=== PATIENT | female | born 1965 | race Caucasian/White ===

== ENCOUNTER 2021-01-06 10:39 | Inpatient (IN) | payer OTHER, SELFPAY ==
--- NOTE | ~2021-01-06 | XR_ITS ---
EXAMINATION: XR chest 1V portable DATE: 01/06/2021 11:14 INDICATION: Weakness. Low oxygen saturation. TECHNIQUE: A single frontal view of the chest was obtained. COMPARISON: None. FINDINGS: There are patchy airspace opacities in the mid and lower lung zones with a peripheral predo minance. No pleural effusion or pneumothorax. The heart size is normal. IMPRESSION: 1. Patchy airspace opacities in the mid and lower lung zones, consistent with pneumonia (especially C OVID-19 pneumonia). Reviewed, dictated and finalized at location B. IMPRESSION: 1. Patchy airspace opacities in the mid and lower lung zones, consistent with p neumonia (especially COVID-19 pneumonia).
--- NOTE | ~2021-01-06 | XR_ITS ---
XR chest 1V portable DATE: 01/10/2021 12:02 INDICATION: Hypoxia TECHNIQUE: Portable upright AP chest on 01/10/2021 at 1201 hours COMPARISON: 01/06/2021 portable AP chest at 1109 hours FINDINGS: Persistent patchy infiltrates are noted in the mid and lower lung zones, relatively stable in appearance compared to 01/06/2021. Normal heart size. No pleural effusion or pulmonary vascular congestion or pneumothorax. Mild dextroscoliosis and degenerative spurring of the thoracic spine. IMPRESSION: Stable patchy bilateral mid and lower lung zone infiltrates since 01/06/2021 Reviewed, dictated and finalized at location A.
[2021-01-06 10:42] VITALS: BP 125/62; PULSE 87; RESP 20; TEMP 36.7; O2SAT 88
--- NOTE | 2021-01-06 10:57 | ECG_ITS ---
Measurements Intervals [place] Rate: 76 P: 53 [place]: 167 QRS: 34 QRSD: 85 T: 40 QT: 358 QTc: 404 Interpretive Statements SINUS RHYTHM NORMAL ECG Electronically Signed On 01-06-2021 12:14:56 CDT by Luis Grey D.O.
[2021-01-06 11:13] LABS: Basophils Percent Auto 0.2 % (0.2-1.2); Hemoglobin 13.9 g/dL (12.0-15.0); Immature Granulocyte Absolute 0.05 K/mm3 (0.00-0.031); Immature Granulocyte Percent A 0.8 % (0-0.5); Lymphocytes Absolute Auto 1.04 K/mm3 (0.9-3.2); Lymphocytes Percent Auto 16.2 % (18.3-44.2); Mean Corpuscular HGB Conc 34.8 g/dl (32-36); Mean Corpuscular Hemoglobin 30.6 pg (26-34); Mean Corpuscular Volume 88.1 fl (80-100); Mean Platelet Volume 9.8 fl (7.4-10.4); Monocytes Absolute Auto 0.3 K/mm3 (0.1-0.6); Monocytes Percent Auto 5.1 % (2.6-8.5); Neutrophils Percent Auto 77.7 % (45.5-73.1); Platelet Count Result 176 k/mm3 (150-375); Red Blood Count 4.54 M/mm3 (4.2-5.4); Red Cell Distribution Width 11.5 % (11.5-14.5); White Blood Count 6.4 K/mm3 (4.5-10.0)
--- NOTE | 2021-01-06 11:18 | PC.NURSE ---
Briana from lab called - both green tops hemolyzed. Informed Dr Gomez & lab draw
--- NOTE | 2021-01-06 11:22 | ED.GENADULT ---
HPI - General Adult General Chief complaint: Weakness Stated complaint: dehydration, weakness, fever Time Seen by Provider: 01/06/21 11:12 Source: patient History of Present Illness HPI narrative: Patient is 55 y/o female complaining of fever, cough and weakness for 1-2 weeks. She states that she had she had her first dose of COVID vaccine approximately 10 days ago and her symptoms started shortly after. She states that her temperature went up to 104 and her fever is usually relieved by OTC Tylenol. She has no chest pain or abdominal pain. She does not feel SOB despite low pulse ox recorded in ED. Related Data Home Medications Medication Instructions Recorded Confirmed No Home Medications 01/06/21 01/06/21 Allergies Allergy/AdvReac Type Severity Reaction Status Date / Time No Known Allergies Allergy Verified 01/06/21 15:18 Review of Systems Constitutional: Constitutional: Reports chills, Reports fever(s), Denies headache(s) and Reports weakness Eyes: Eyes: Denies blurry vision ENT: Denies headache(s) and Denies neck pain Cardiovascular: Cardiovascular: Denies chest pain and Denies dyspnea Respiratory: Respiratory: Reports cough and Denies dyspnea Gastrointestinal: Gastrointestinal: Denies abdominal pain, Denies diarrhea, Denies nausea and Denies vomiting Genitourinary: Genitourinary: Denies hematuria and Denies dysuria Musculoskeletal: Musculoskeletal: Denies back pain and Denies neck pain Neurologic: Denies headache(s) and Reports weakness [facility] Family History Family History (Updated 01/06/21 @ 15:10 by Milagros Butt RN) Father Lymphoblastic (diffuse) lymphoma, unspecified site Mother Diabetes mellitus Social History Social History Smoking status: Never smoker Alcohol intake: never Substance use: never Gender identity (if verbalized by the patient): Female Spiritual care concerns: No Exam Const: General: no acute distress and well developed Orientation/consciousness: oriented to person, oriented to place, oriented to time and patient oriented x3 HENMT: Head: normocephalic Ears: external ears normal General nose exam: Normal external nose present Eyes: General: appearance normal, both eyes and all related structures Conjunctivae: conjunctivae normal Neck: Neck: normal visual inspection and full ROM Chest: Chest palpation & inspection: normal inspection of the chest and no tenderness Resp: Effort & Inspection: normal respiratory effort Auscultation: clear to auscultation bilaterally Cardio: Rate: regular rate Rhythm: regular rhythm GI: GI Palp: No abdominal tenderness and Yes Soft to palpation Skin: General skin exam: normal color and turgor normal Neuro: General: oriented to person, oriented to place, oriented to time and patient oriented x3 Cognition (Neuro): normal cognition Extrem: General: normal to inspection, full ROM and no pedal edema Psych: Appearance: grossly normal Mental Status: mental status grossly normal Affect: normal affect Course Consultations Consultation #1: Discussed with Dr. Greco, who agrees to admit. Date: 01/06/21 Time: 12:37 Vital Signs Vital signs: Vital Signs Temperature 36.7 C 01/06/21 10:42 Pulse Rate 87 01/06/21 10:42 Respiratory Rate 20 01/06/21 10:42 Blood Pressure 125/62 01/06/21 10:42 Pulse Oximetry 88 L 01/06/21 10:42 Temperature 36.7 C 01/06/21 16:00 Pulse Rate 74 01/06/21 16:00 Respiratory Rate 18 01/06/21 16:00 Blood Pressure 121/58 L 01/06/21 16:00 Pulse Oximetry 94 01/06/21 16:00 Medical Decision Making Vital Signs Vital Signs: Vital Signs Temperature 36.7 C 01/06/21 10:42 Pulse Rate 87 01/06/21 10:42 Respiratory Rate 20 01/06/21 10:42 Blood Pressure 125/62 01/06/21 10:42 Pulse Oximetry 88 L 01/06/21 10:42 Temperature 36.7 C 01/06/21 16:00 Pulse Rate 74 01/06/21 16:00 Respiratory Rate 18 01/06/21 16:00 Blood Pressure 121/58 L
--- NOTE | 2021-01-06 11:31 | PC.NURSE ---
c/o x1.5wks flu-like symptoms, denies covid contacts. Today felt weak, congested cough, fever/chills . Hypoxic on RA (mid-80's) and DE LEON, quick improvement with 2L NC.
[2021-01-06] MEDS: SODIUM CHLORIDE 0.9% IV 1,000 ML 999 ML IV CONT (11:33)
[2021-01-06 11:46] LABS: Lactic Acid Reflex 1.3 mmol/L (0.7-2.1)
[2021-01-06 11:59] LABS: Alanine Aminotransferase 23 U/L (4-35); Alkaline Phosphatase 80 U/L (38-126); Anion Gap 5 mmol/L (8-16); Aspartate Amino Transferase 68 U/L (14-36); Bilirubin,Total 0.5 mg/dL (0.2-1.3); Blood Urea Nitrogen 19 mg/dL (7-17); Calcium 8.7 mg/dL (8.4-10.2); Carbon Dioxide 29 mmol/L (22-30); Chloride 100 mmol/L (98-107); Estimated CRCL calculation 66 ml/min; Estimated Glomerular Filt Rate 58; Glucose 120 mg/dL (65-105); Potassium 3.7 mmol/L (3.4-5.0); Sodium 134 mmol/L (137-145)
[2021-01-06 12:55] VITALS: BP 121/65; PULSE 73; RESP 22; O2SAT 93
[2021-01-06] MEDS: DEXAMETHASONE SOD PHOS INJ 4 MG/ML VIAL 6 MG IV PUSH (12:58)
[2021-01-06 14:32] VITALS: BP 117/69; PULSE 77; RESP 22; O2SAT 93
--- NOTE | 2021-01-06 14:50 | PC.NURSE ---
This patient, Blank Quezada, was admitted to 3 [facility] Surg Room 320-01. Patient/family oriented to hospital policies and general routines including ID bracelet, bed and alarms, visiting hours, pain management, procedures, bathroom and other care routines, personal items, smoking policy, room service/diet, and visiting hours. Report received from Indira MALLORY Information on how to activate the Rapid Response Team has been discussed. Patient/Family are encouraged to report perceived risks to care and to ask questions if they do not understand what they are told or what they should do.
[2021-01-06 15:02] VITALS: O2SAT 94
[2021-01-06 15:03] VITALS: BMI 31.0
[2021-01-06 16:00] VITALS: BP 121/58; PULSE 68; PULSE 74; RESP 18; TEMP 36.7; O2SAT 94
[2021-01-06 19:19] LABS: SARS-CoV-2 RNA PCR Positive
[2021-01-06 20:00] VITALS: BP 104/61; PULSE 73; PULSE 75; RESP 18; TEMP 35.9; O2SAT 92; O2SAT 93
--- NOTE | 2021-01-06 22:44 | PM.IMHP ---
H&P: HPI History of Present Illness Date/Time: 01/06/21 22:44 Chief Complaint: cough, sob Narrative: Patient is 55 y/o female complaining of fever, cough and weakness for 1-2 weeks. She states that she had she had her first dose of COVID vaccine approximately 10 days ago while she was in [place] and her symptoms started shortly after. She states that her temperature went up to 104 and her fever is usually relieved by OTC Tylenol. She has no chest pain or abdominal pain. She does not feel SOB despite low pulse ox recorded in ED. Review of Systems Review of Systems: Narrative: - CONSTITUTIONAL: Denies weight loss, reports fever and chills. - HEENT: Denies changes in vision and hearing - RESPIRATORY: reports SOB and cough. - CV: Denies palpitations and CP. - GI: Denies abdominal pain, nausea, vomiting and diarrhea. - : Denies dysuria and urinary frequency. - MSK: Denies myalgia and joint pain. - SKIN: Denies rash and pruritus. - NEUROLOGICAL: Denies headache and syncope. - PSYCHIATRIC: Denies recent changes in mood. Denies anxiety and depression. All systems reviewed & are unremarkable except as noted in HPI and below PMFSH Family History Family History (Updated 01/06/21 @ 15:10 by Milagros Butt RN) Father Lymphoblastic (diffuse) lymphoma, unspecified site Mother Diabetes mellitus Social History Social History Smoking status: Never smoker Alcohol intake: never Substance use: never Gender identity (if verbalized by the patient): Female Spiritual care concerns: No Meds Home Medications and Allergies Home Medications Medication Instructions Recorded Confirmed Type No Home Medications 01/06/21 01/06/21 History Allergies Allergy/AdvReac Type Severity Reaction Status Date / Time No Known Allergies Allergy Verified 01/06/21 15:18 Vital Signs Vital Signs - 24 hr 01/06/21 10:42 01/06/21 12:55 01/06/21 14:32 Temperature 98.1 F Pulse Rate 87 73 77 Respiratory Rate 20 22 H 22 H Blood Pressure 125/62 121/65 117/69 Pulse Oximetry 88 L 93 93 01/06/21 15:02 01/06/21 16:00 01/06/21 20:00 Temperature 98.0 F 96.7 F L Pulse Rate 74 73 Respiratory Rate 18 18 Blood Pressure 121/58 L 104/61 Pulse Oximetry 94 94 93 Exam Narrative: Exam Narrative: GENERAL: The patient is well developed, not in acute distress HEENT: Nonicteric sclerae, PERRLA, EOMI. Oropharynx clear. Moist mucous membranes. Conjunctivae appear well perfused. CHEST: Chest wall is nontender. HEART: Regular rate and rhythm without murmur, rubs, or gallops LUNGS:crackles bilaterally at bases. no respiratory distress, on oxygen ABDOMEN: Soft, positive bowel sounds, non-tender, no organomegaly. SKIN: No rash, no excessive bruising, petechiae, or purpura. NEUROLOGIC: Cranial nerves II-XII intact, alert and oriented x 3, no gross motor deficits EXTREMITIES: no edema, cyanosis or clubbing H&P: Results Labs Labs: Short CBC 01/06/21 Range/Units 11:01 WBC 6.4 (4.5-10.0) K/mm3 Hgb 13.9 (12.0-15.0) g/dL Hct 40.0 (37.0-47.0) % Plt Count 176 (150-375) k/mm3 BMP 01/06/21 01/06/21 11:01 11:23 Sodium Cancelled 134 L Potassium Cancelled 3.7 Chloride Cancelled 100 Carbon Dioxide Cancelled 29 BUN Cancelled 19 H Creatinine Cancelled 1.00 Glucose Cancelled 120 H Calcium Cancelled 8.7 Liver Function 01/06/21 Range/Units 11:23 Total Bilirubin 0.5 (0.2-1.3) mg/dL AST 68 H (14-36) U/L ALT 23 (4-35) U/L Alkaline Phosphatase 80 (38-126) U/L Albumin 4.0 (3.5-5.1) g/dL Assessment and Plan Assessment and plan (1) Acute respiratory failure with hypoxia: Code(s): J96.01 - Acute respiratory failure with hypoxia Status: Acute (2) Pneumonia: Qualifiers: Laterality: bilateral Lung location: unspecified part of lung Pneumonia type: due to unspecified organism Qualified Code(s): J18.9 - Pneumonia, unspecified organism
[2021-01-06 23:36] LABS: Alanine Aminotransferase 21 U/L (4-35); Estimated CRCL calculation 82 ml/min; Estimated Glomerular Filt Rate > 60; Prothrombin Time 14.1 Seconds (11.1-14.7)
[2021-01-07] VITALS (12 sets, daily range): BP systolic 104–137; BP diastolic 58–64; PULSE 66–81; RESP 18–20; TEMP 36.1–37.2; O2SAT 90–92
[2021-01-07 01:22] LABS: Procalcitonin 0.1 ng/mL
[2021-01-07 06:31] LABS: Prothrombin Time 13.5 Seconds (11.1-14.7)
[2021-01-07 06:32] LABS: Alanine Aminotransferase 22 U/L (4-35); Estimated CRCL calculation 82 ml/min; Estimated Glomerular Filt Rate > 60
[2021-01-07] MEDS: ENOXAPARIN 40 MG/0.4 ML SYRINGE SUB-Q ×2 (09:48→21:02)
[2021-01-07] MEDS: DEXAMETHASONE SOD PHOS INJ 4 MG/ML VIAL 6 MG IV PUSH (09:48)
--- NOTE | 2021-01-07 14:31 | PM.IMPN ---
Progress Note: A&P Assessment and Plan (1) Acute respiratory failure with hypoxia: Code(s): J96.01 - Acute respiratory failure with hypoxia Status: Acute Assessment and Plan: Patient was diagnosed with COVID-19 on arrival after having her 1st COVID vaccine about 10 days ago. After her vaccine she has had intermittent fevers, cough, weakness. Initial vitals showed She was afebrile, normal blood pressure, non tachycardic heart rate and found to be hypoxic at 88% on room air. She was placed on oxygen 2 L with improvement to 93%. Initial labs showed normal WBC with elevated 77%. Normal coag panel. Slight dehdyration with hyponatremia at 134, Cr 1.0, BUN 19. Slightly elevated 68. Chest x-ray on arrival showed patchy airspace opacities in middle and lower lung zones consistent with pneumonia (especially COVID-19 pneumonia). COVID test came back positive on 01/06/21. Still hypoxic at 90% on 2L via NC. Ordered albuterol inhaler, p.r.n. cough syrup, nasal gel IV dexamethasone day #2, out of the window for IV Remdesivir Procalcitonin was normal, patient not having a productive cough to will DC IV antibiotics at this time. Continue monitoring was symptomatic management. Wean oxygen as tolerated. (2) Pneumonia due to COVID-19 virus: Code(s): U07.1 - COVID-19; J12.82 - Pneumonia due to coronavirus disease 2019 Status: Acute Assessment and Plan: Please see above. Additional Plan DVT proph: lovenox 40 mg subcu q.12 Time Spent With Patient Time with patient: 25 - 35 minutes Subjective Date/time seen: 01/07/21 14:31 Interval history: Date of service 01/07/2021: The patient reports feeling slightly better today. She is having more of an appetite today and denies any shortness of breath despite being on 2 L of oxygen. She still has intermittent dry coughing fits. Denies any production to her cough. Denies any fevers or chills. She is having some lightheadedness with standing which is been going on the last few days. The patient does feel like she is dehydrated. She has lost her taste and smell. Denies any dizziness, headache, chest pain, nausea, vomiting, abdominal pain, leg swelling, calf pain, or any other symptoms at this time. Review of Systems Review of Systems: All systems reviewed & are unremarkable except as noted in HPI and below Exam Narrative: Exam Narrative: General: 55year-old woman laying flat in bed. Appears comfortable. In no acute distress. Skin: No jaundice or cyanosis. Good skin turgor. Neck: Full range of motion. Supple. Nontender. Respiratory: Lungs are clear to auscultation bilaterally. No bony chest wall tenderness. Cardiovascular: The heart has a regular rate and rhythm without murmur. No carotid bruits. Lower extremities: No lower extremity edema. Distal pulses are easily palpated. No calf tenderness to palpation. Gastrointestinal: The abdomen is soft, nontender and nondistended with active bowel sounds. Psychiatric: Lucid and oriented. Memory intact. Neurologic: No focal deficits. Speech is clear. No facial drooping. Objective Data Vital Signs Vital Signs: Vital Signs - 24 hr 01/06/21 14:32 01/06/21 15:02 01/06/21 16:00 Temperature 98.0 F Pulse Rate 77 74 Respiratory Rate 22 H 18 Blood Pressure 117/69 121/58 L Pulse Oximetry 93 94 94 01/06/21 20:00 01/07/21 00:00 01/07/21 04:00 Temperature 96.7 F L 97.3 F L 97 F L Pulse Rate 75 66 73 Respiratory Rate 18 18 18 Blood Pressure 104/61 104/63 120/61 Pulse Oximetry 92 91 92 01/07/21 08:00 01/07/21 12:00 Temperature 99.0 F 98.9 F Pulse Rate 70 70 Respiratory Rate 20 20 Blood Pressure 113/58 L 122/60 Pulse Oximetry 92 90 Intake/Output Intake/Output: Intake & Output 01/04/21 01/05/21 01/06/21 01/07/21 23:59 23:59 23:59 23:59 Intake Total 2090 1080 Output Total 650 Balance
[2021-01-08] VITALS (10 sets, daily range): BP systolic 114–139; BP diastolic 59–70; PULSE 60–76; RESP 16–18; TEMP 36.4–36.7; O2SAT 88–95
[2021-01-08 06:21] LABS: Hematocrit 37.7 % (37.0-47.0); Hemoglobin 12.7 g/dL (12.0-15.0); Mean Corpuscular HGB Conc 33.7 g/dl (32-36); Mean Corpuscular Hemoglobin 30.3 pg (26-34); Mean Platelet Volume 9.6 fl (7.4-10.4); Platelet Count Result 231 k/mm3 (150-375); Red Blood Count 4.19 M/mm3 (4.2-5.4); Red Cell Distribution Width 11.6 % (11.5-14.5); White Blood Count 14.2 K/mm3 (4.5-10.0)
[2021-01-08 06:35] LABS: Alanine Aminotransferase 23 U/L (4-35); Albumin Level 3.6 g/dL (3.5-5.1); Alkaline Phosphatase 77 U/L (38-126); Anion Gap 5 mmol/L (8-16); Aspartate Amino Transferase 46 U/L (14-36); Bilirubin,Total 0.4 mg/dL (0.2-1.3); Blood Urea Nitrogen 18 mg/dL (7-17); CRP 5.4 mg/dL (<1.0); Calcium 9.2 mg/dL (8.4-10.2); Carbon Dioxide 32 mmol/L (22-30); Chloride 103 mmol/L (98-107); Estimated CRCL calculation 82 ml/min; Estimated Glomerular Filt Rate > 60; Glucose 115 mg/dL (65-105); Lactate Dehydrogenase 897 U/L (313-618); Potassium 4.1 mmol/L (3.4-5.0); Sodium 140 mmol/L (137-145)
[2021-01-08] MEDS: SALINE 0.65% NAS SOLN 44 ML BTL 1 SPRAY NASAL (08:19)
[2021-01-08] MEDS: DEXAMETHASONE SOD PHOS INJ 4 MG/ML VIAL 6 MG IV PUSH (08:20)
[2021-01-08] MEDS: ENOXAPARIN 40 MG/0.4 ML SYRINGE SUB-Q ×2 (08:20→21:36)
--- NOTE | 2021-01-08 12:15 | PM.IMPN ---
Progress Note: A&P Assessment and Plan (1) Acute respiratory failure with hypoxia: Code(s): J96.01 - Acute respiratory failure with hypoxia Status: Acute Assessment and Plan: Patient was diagnosed with COVID-19 on arrival after having her 1st COVID vaccine about 10 days ago. After her vaccine she has had intermittent fevers, cough, weakness. Initial vitals showed She was afebrile, normal blood pressure, non tachycardic heart rate and found to be hypoxic at 88% on room air. She was placed on oxygen 2 L with improvement to 93%. Initial labs showed normal WBC with elevated 77%. Normal coag panel. Slight dehdyration with hyponatremia at 134, Cr 1.0, BUN 19. Slightly elevated 68. Chest x-ray on arrival showed patchy airspace opacities in middle and lower lung zones consistent with pneumonia (especially COVID-19 pneumonia). COVID test came back positive on 01/06/21. Still hypoxic was 88% on 2L via NC, so she was increased to 3L via NC and 91%. Ordered albuterol inhaler, p.r.n. cough syrup, nasal gel IV dexamethasone day #3, out of the window for IV Remdesivir Procalcitonin was normal, patient not having a productive cough to will DC IV antibiotics at this time. Continue monitoring was symptomatic management. Wean oxygen as tolerated. (2) Pneumonia due to COVID-19 virus: Code(s): U07.1 - COVID-19; J12.82 - Pneumonia due to coronavirus disease 2019 Status: Acute Assessment and Plan: Please see above. Additional Plan DVT proph: lovenox 40 mg subcu q.12 Time Spent With Patient Time with patient: 25 - 35 minutes Subjective Date/time seen: 01/08/21 12:15 Interval history: Date of service 01/08/2021: The patient reports feeling slightly better today. She is having more of an appetite today and denies any shortness of breath despite being on 3 L of oxygen. She still has intermittent dry coughing fits. Denies any production to her cough. Denies any fevers or chills. She is having some lightheadedness with standing which is been going on the last few days. The patient does feel like she is dehydrated. She has lost her taste and smell. Denies any dizziness, headache, chest pain, nausea, vomiting, abdominal pain, leg swelling, calf pain, or any other symptoms at this time. Review of Systems Review of Systems: All systems reviewed & are unremarkable except as noted in HPI and below Exam Narrative: Exam Narrative: General: 55year-old woman sitting up in bed. Appears comfortable. In no acute distress. Skin: No jaundice or cyanosis. Good skin turgor. Neck: Full range of motion. Supple. Respiratory: Lungs are clear to auscultation bilaterally. No bony chest wall tenderness. Cardiovascular: The heart has a regular rate and rhythm without murmur. Lower extremities: No lower extremity edema. Distal pulses are easily palpated. No calf tenderness to palpation. Gastrointestinal: The abdomen is soft, nontender and nondistended with active bowel sounds. Psychiatric: Lucid and oriented. Memory intact. Neurologic: No focal deficits. Speech is clear. No facial drooping. Objective Data Vital Signs Vital Signs: Vital Signs - 24 hr 01/07/21 14:38 01/07/21 14:40 01/07/21 14:42 Temperature Pulse Rate Respiratory Rate Blood Pressure 116/59 L 130/64 137/64 Pulse Oximetry 01/07/21 16:00 01/07/21 16:29 01/07/21 20:00 Temperature 98.6 F 98.3 F Pulse Rate 70 79 Respiratory Rate 20 18 Blood Pressure 120/60 133/58 L Pulse Oximetry 90 92 92 01/07/21 20:38 01/07/21 23:39 01/08/21 00:00 Temperature 97.6 F Pulse Rate 72 65 Respiratory Rate 18 Blood Pressure 113/59 L Pulse Oximetry 91 91 01/08/21 04:00 01/08/21 08:00 01/08/21 08:20 Temperature 98.1 F 97.8 F Pulse Rate 70 72 Respiratory Rate 16 16 Blood Pressure 114/62 120/70 Pulse Oximetry 90 94 88 L
[2021-01-09] VITALS (7 sets, daily range): BP systolic 117–144; BP diastolic 59–66; PULSE 63–71; RESP 16–18; TEMP 36.4–37.2; O2SAT 90–93
[2021-01-09 06:35] LABS: Alanine Aminotransferase 23 U/L (4-35); Estimated CRCL calculation 82 ml/min; Estimated Glomerular Filt Rate > 60
[2021-01-09 06:40] LABS: Prothrombin Time 13.8 Seconds (11.1-14.7)
[2021-01-09] MEDS: DEXAMETHASONE SOD PHOS INJ 4 MG/ML VIAL 6 MG IV PUSH (08:41)
[2021-01-09] MEDS: ENOXAPARIN 40 MG/0.4 ML SYRINGE SUB-Q ×2 (08:42→20:55)
--- NOTE | 2021-01-09 11:44 | PM.IMPN ---
Progress Note: A&P Assessment and Plan (1) Acute respiratory failure with hypoxia: Code(s): J96.01 - Acute respiratory failure with hypoxia Status: Acute Assessment and Plan: Patient was diagnosed with COVID-19 on arrival after having her 1st COVID vaccine about 10 days ago. After her vaccine she has had intermittent fevers, cough, weakness. Initial vitals showed She was afebrile, normal blood pressure, non tachycardic heart rate and found to be hypoxic at 88% on room air. She was placed on oxygen 2 L with improvement to 93%. Initial labs showed normal WBC with elevated 77%. Normal coag panel. Slight dehdyration with hyponatremia at 134, Cr 1.0, BUN 19. Slightly elevated 68. Chest x-ray on arrival showed patchy airspace opacities in middle and lower lung zones consistent with pneumonia (especially COVID-19 pneumonia). COVID test came back positive on 01/06/21. She is resting comfortably on 3L via NC at 90%. Ordered albuterol inhaler, p.r.n. cough syrup, nasal gel IV dexamethasone day #4, out of the window for IV Remdesivir Procalcitonin was normal, patient not having a productive cough to will DC IV antibiotics at this time. Continue monitoring was symptomatic management. Wean oxygen as tolerated. still requiring oxygen even after multiple days of hospitalization. Explain her she may need to go home on oxygen and if she still requires some in the next few days. Will continue monitoring to ensure she does not have any worsening symptoms or needing more oxygen. (2) Pneumonia due to COVID-19 virus: Code(s): U07.1 - COVID-19; J12.82 - Pneumonia due to coronavirus disease 2019 Status: Acute Assessment and Plan: Please see above. Additional Plan DVT proph: lovenox 40 mg subcu q.12 Time Spent With Patient Time with patient: 25 - 35 minutes Subjective Date/time seen: 01/09/21 11:44 Interval history: Date of service 01/09/2021: The patient reports feeling slightly better today. Still having some dyspnea with exertion. Denies any shortness of breath at rest. Still having a dry cough, nonproductive. Denies any fevers or chills. She has lost her taste and smell so has a decreased appetite. Denies any dizziness, headache, chest pain, nausea, vomiting, abdominal pain, leg swelling, calf pain, or any other symptoms at this time. Review of Systems Review of Systems: All systems reviewed & are unremarkable except as noted in HPI and below Exam Narrative: Exam Narrative: General: 55 year-old woman sitting up in bed watching TV. Appears comfortable on 3L via NC. In no acute distress. Skin: No jaundice or cyanosis. Good skin turgor. Neck: Full range of motion. Supple. Respiratory: Lungs are clear to auscultation bilaterally. No wheezing, rales or rhonchi. No bony chest wall tenderness. Cardiovascular: The heart has a regular rate and rhythm without murmur. Lower extremities: No lower extremity edema. Distal pulses are easily palpated. No calf tenderness to palpation. Gastrointestinal: The abdomen is soft, nontender and nondistended with active bowel sounds. Psychiatric: Lucid and oriented. Memory intact. Neurologic: No focal deficits. Speech is clear. No facial drooping. Objective Data Vital Signs Vital Signs: Vital Signs - 24 hr 01/08/21 12:00 01/08/21 16:00 01/08/21 20:00 Temperature 97.5 F L 97.8 F 97.5 F L Pulse Rate 75 65 76 Respiratory Rate 16 16 18 Blood Pressure 120/59 L 132/60 130/62 Pulse Oximetry 94 92 93 01/08/21 23:49 01/09/21 04:00 01/09/21 08:00 Temperature 97.8 F 97.5 F L 97.9 F Pulse Rate 70 64 64 Respiratory Rate 18 18 18 Blood Pressure 139/68 117/59 L 129/62 Pulse Oximetry 95 93 90 01/09/21 09:16 Temperature Pulse Rate Respiratory Rate Blood Pressure Pulse Oximetry 90 Intake/Output Intake/Output: Intake & Output 01/06/2112/28
[2021-01-09] MEDS: SODIUM CHLORIDE NASAL GEL 14.1 GM 1 APPLIC NASAL (20:56)
[2021-01-10] VITALS (16 sets, daily range): BP systolic 120–141; BP diastolic 58–69; PULSE 54–96; RESP 18–20; TEMP 36.2–37.2; O2SAT 84–93
[2021-01-10 07:19] LABS: Prothrombin Time 13.6 Seconds (11.1-14.7)
[2021-01-10] MEDS: ENOXAPARIN 40 MG/0.4 ML SYRINGE SUB-Q ×2 (09:05→20:19)
[2021-01-10] MEDS: DEXAMETHASONE SOD PHOS INJ 4 MG/ML VIAL 6 MG IV PUSH (09:05)
--- NOTE | 2021-01-10 11:00 | HOMEO2EVAL ---
Evaluation was performed at [facility] Home Oxygen Evaluation RC: Home Oxygen (O2) Evaluation Start: 01/10/21 08:31 Freq: ONCE Status: Active Protocol: RPE Activity Type Activity Date Activity User E-Sign Co-Sign Detail Recorded Client Recorded Date Recorded By Document 01/10/21 10:30 VAL RT_012 01/10/21 11:00 VAL Document 01/10/21 10:32 VAL RT_012 01/10/21 11:00 VAL Document 01/10/21 10:33 VAL [email or web address] 01/10/21 11:00 VAL Document 01/10/21 10:34 VAL [email or web address] 01/10/21 11:00 VAL Document 01/10/21 10:36 VAL [email or web address] 01/10/21 11:00 VAL Document 01/10/21 10:38 VAL RT_012 01/10/21 11:00 VAL Document 01/10/21 10:40 VAL [email or web address] 01/10/21 11:00 VAL Document 01/10/21 10:41 VAL [email or web address] 01/10/21 11:00 VAL Document 01/10/21 10:45 VAL [email or web address] 01/10/21 11:00 VAL 01/10/21 01/10/21 01/10/21 10:30 10:32 10:33 Home O2 Evaluation Test Phase Resting Resting Resting Oxygen Delivery Room Air Nasal Cannula Nasal Cannula Oxygen Flow Rate (L/min) 1 2 Pulse Oximetry (90-100 %) 84 L 85 L 86 L Pulse Rate (60-100 beats/min) 70 Ambulation Distance (feet) Home Oxygen Evaluation Comments Treatment Charges O2 Evaluation - Inpatient 01/10/21 01/10/21 01/10/21 10:34 10:36 10:38 Home O2 Evaluation Test Phase Resting Exercise Exercise Oxygen Delivery Nasal Cannula Nasal Cannula Nasal Cannula Oxygen Flow Rate (L/min) 3 3 4 Pulse Oximetry (90-100 %) 89 L 84 L 85 L Pulse Rate (60-100 beats/min) 96 Ambulation Distance (feet) Home Oxygen Evaluation Comments Treatment Charges 01/10/21 01/10/21 01/10/21 10:40 10:41 10:45 Home O2 Evaluation Test Phase Exercise Exercise Resting Oxygen Delivery Nasal Cannula Nasal Cannula Nasal Cannula Oxygen Flow Rate (L/min) 5 6 3 Pulse Oximetry (90-100 %) 86 L 87 L 89 L Pulse Rate (60-100 beats/min) 93 72 Ambulation Distance (feet) 25 Home Oxygen Evaluation Comments up to side of bed, walked to bathroom door and back to bed , unable to keep sats above 88 on 6L. Treatment Charges
--- NOTE | 2021-01-10 11:00 | PCRCNOTE ---
Pt sats stayed approx 85-87% on 6L cannula with minimal exertion, up to side of bed, walked to bathroom door. Deep breathing encouraged. Pt stated she is returning to [place] (home) upon discharge, may be difficult to keep pt oxygenated upon transport. RN notified. Graciela mahajan, Pt qualifies for O2, no home O2 DME has been set up for her at this time.
[2021-01-10 11:03] LABS: Alanine Aminotransferase 27 U/L (4-35); Albumin Level 3.3 g/dL (3.5-5.1); Alkaline Phosphatase 74 U/L (38-126); Anion Gap 7 mmol/L (8-16); Aspartate Amino Transferase 41 U/L (14-36); Bilirubin,Total 0.3 mg/dL (0.2-1.3); Blood Urea Nitrogen 22 mg/dL (7-17); CRP 1.8 mg/dL (<1.0); Calcium 9.3 mg/dL (8.4-10.2); Carbon Dioxide 24 mmol/L (22-30); Chloride 106 mmol/L (98-107); Estimated CRCL calculation 93 ml/min; Estimated Glomerular Filt Rate > 60; Glucose 101 mg/dL (65-105); Lactate Dehydrogenase 771 U/L (313-618); Potassium 4.1 mmol/L (3.4-5.0); Sodium 137 mmol/L (137-145)
--- NOTE | 2021-01-10 14:26 | PM.IMPN ---
Progress Note: A&P Assessment and Plan (1) Acute respiratory failure with hypoxia: Code(s): J96.01 - Acute respiratory failure with hypoxia Status: Acute Assessment and Plan: Patient was diagnosed with COVID-19 on arrival after having her 1st COVID vaccine about 10 days ago. After her vaccine she has had intermittent fevers, cough, weakness. Initial vitals showed She was afebrile, normal blood pressure, non tachycardic heart rate and found to be hypoxic at 88% on room air. She was placed on oxygen 2 L with improvement to 93%. Initial labs showed normal WBC with elevated 77%. Normal coag panel. Slight dehdyration with hyponatremia at 134, Cr 1.0, BUN 19. Slightly elevated 68. Chest x-ray on arrival showed patchy airspace opacities in middle and lower lung zones consistent with pneumonia (especially COVID-19 pneumonia). COVID test came back positive on 01/06/21. She is resting comfortably on 3L via NC at 93%. Will increase albuterol inhaler to QID Scheduled, p.r.n. cough syrup, nasal gel IV dexamethasone day #5, out of the window for IV Remdesivir Procalcitonin was normal, patient not having a productive cough to will DC IV antibiotics at this time. Continue monitoring was symptomatic management. Wean oxygen as tolerated. 01/10/21- I did a Home Oxygen Evaluation since she has been stable on Oxygen for 5 days and she required 6L with exertion due to hypoxia. Since she would have to travel back home to [place] after discharge I believe this is still to much Oxygen for the travel and would like to see if she improves over the next few days. (2) Pneumonia due to COVID-19 virus: Code(s): U07.1 - COVID-19; J12.82 - Pneumonia due to coronavirus disease 2018 Status: Acute Assessment and Plan: Please see above. Additional Plan DVT proph: lovenox 40 mg subcu q.12 Time Spent With Patient Time with patient: 25 - 35 minutes Subjective Date/time seen: 01/10/21 14:26 Interval history: Date of service 01/10/2021: The patient reports feeling fine today. She still reports improvement from when she came in, but she is still on 3L via NC and required 6L with exertion when she walked around the room. Still having some dyspnea with exertion. Still having a dry cough, nonproductive. Denies any fevers or chills. She has lost her taste and smell so has a decreased appetite. Denies any dizziness, headache, chest pain, nausea, vomiting, abdominal pain, leg swelling, calf pain, or any other symptoms at this time. Review of Systems Review of Systems: All systems reviewed & are unremarkable except as noted in HPI and below Exam Narrative: Exam Narrative: General: 55 year-old woman sitting up in the chair about to eat lunch. Appears comfortable on 3L via NC. In no acute distress. Skin: No jaundice or cyanosis. Good skin turgor. Neck: Full range of motion. Supple. Respiratory: Decreased lung sounds throughout all lung lau. No wheezing, rales or rhonchi. No bony chest wall tenderness. Cardiovascular: The heart has a regular rate and rhythm without murmur. Lower extremities: No lower extremity edema. Distal pulses are easily palpated. No calf tenderness to palpation. Gastrointestinal: The abdomen is soft, nontender and nondistended with active bowel sounds. Psychiatric: Lucid and oriented. Memory intact. Neurologic: No focal deficits. Speech is clear. No facial drooping. Objective Data Vital Signs Vital Signs: Vital Signs - 24 hr 01/09/21 16:00 01/09/21 20:00 01/09/21 23:35 Temperature 98.9 F 98.5 F 98.4 F Pulse Rate 71 66 63 Respiratory Rate 16 18 18 Blood Pressure 127/66 144/62 H 125/64 Pulse Oximetry 93 90 90 01/10/21 03:54 01/10/21 08:00 01/10/21 10:30 Temperature 98.4 F 98.3 F Pulse Rate 54 L 62 70 Respiratory Rate 18 20 Blood Pressure 129/68 120/69 Pulse Oximetry 90 90 84 L
--- NOTE | 2021-01-10 17:08 | PCRCNOTE ---
Window of time for administration has passed. See next scheduled administration.
[2021-01-10] MEDS: ALBUTEROL SULFATE (*SP) INHALER 2 PUFF INHALATION ×2 (17:25→20:19)
[2021-01-10] MEDS: SALINE 0.65% NAS SOLN 44 ML BTL 1 SPRAY NASAL (20:18)
[2021-01-10] MEDS: SODIUM CHLORIDE NASAL GEL 14.1 GM 1 APPLIC NASAL (20:19)
[2021-01-11] VITALS (7 sets, daily range): BP systolic 120–140; BP diastolic 61–81; PULSE 62–97; RESP 16–20; TEMP 36–37.2; O2SAT 90–93
[2021-01-11] MEDS: ENOXAPARIN 40 MG/0.4 ML SYRINGE SUB-Q ×2 (10:19→19:51)
[2021-01-11] MEDS: ALBUTEROL SULFATE (*SP) INHALER 2 PUFF INHALATION ×4 (10:20→19:51)
[2021-01-11] MEDS: DEXAMETHASONE SOD PHOS INJ 4 MG/ML VIAL 6 MG IV PUSH (10:20)
--- NOTE | 2021-01-11 15:15 | PM.IMPN ---
Progress Note: A&P Assessment and Plan (1) Acute respiratory failure with hypoxia: Code(s): J96.01 - Acute respiratory failure with hypoxia Status: Acute Assessment and Plan: Patient was diagnosed with COVID-19 on arrival after having her 1st COVID vaccine about 10 days ago. After her vaccine she has had intermittent fevers, cough, weakness. Initial vitals showed She was afebrile, normal blood pressure, non tachycardic heart rate and found to be hypoxic at 88% on room air. She was placed on oxygen 2 L with improvement to 93%. Initial labs showed normal WBC with elevated 77%. Normal coag panel. Slight dehdyration with hyponatremia at 134, Cr 1.0, BUN 19. Slightly elevated 68. Chest x-ray on arrival showed patchy airspace opacities in middle and lower lung zones consistent with pneumonia (especially COVID-19 pneumonia). COVID test came back positive on 01/06/21. She is resting comfortably on 1L via NC at 90%. Continue Albuterol inhaler to QID Scheduled, p.r.n. cough syrup, nasal gel IV dexamethasone day #6, out of the window for IV Remdesivir Procalcitonin was normal, patient not having a productive cough to will DC IV antibiotics at this time. Continue monitoring was symptomatic management. Wean oxygen as tolerated. 01/10/21- I did a Home Oxygen Evaluation since she has been stable on Oxygen for 5 days and she required 6L with exertion due to hypoxia. Since she would have to travel back home to [place] after discharge I believe this is still to much Oxygen for the travel and would like to see if she improves over the next few days. (2) Pneumonia due to COVID-19 virus: Code(s): U07.1 - COVID-19; J12.82 - Pneumonia due to coronavirus disease 2019 Status: Acute Assessment and Plan: Please see above. Additional Plan DVT proph: lovenox 40 mg subcu q.12 Time Spent With Patient Time with patient: 25 - 35 minutes Subjective Date/time seen: 01/11/21 15:15 Interval history: Date of service 01/11/2021: The patient reports feeling fine today. She still reports improvement from when she came in. On 1L via NC at this time. Still having some dyspnea with exertion. Still having a dry cough, nonproductive. Denies any fevers or chills. She has lost her taste and smell so has a decreased appetite. Denies any dizziness, headache, chest pain, nausea, vomiting, abdominal pain, leg swelling, calf pain, or any other symptoms at this time. Review of Systems Review of Systems: All systems reviewed & are unremarkable except as noted in HPI and below Exam Narrative: Exam Narrative: General: 55 year-old woman sitting up in bed finished eating lunch. Appears comfortable on 1L via NC. In no acute distress. Skin: No jaundice or cyanosis. Good skin turgor. Neck: Full range of motion. Supple. Respiratory: Decreased lung sounds throughout all lung lau. No wheezing, rales or rhonchi. No bony chest wall tenderness. Cardiovascular: The heart has a regular rate and rhythm without murmur. Lower extremities: No lower extremity edema. Distal pulses are easily palpated. No calf tenderness to palpation. Gastrointestinal: The abdomen is soft, nontender and nondistended with active bowel sounds. Psychiatric: Lucid and oriented. Memory intact. Neurologic: No focal deficits. Speech is clear. No facial drooping. Objective Data Vital Signs Vital Signs: Vital Signs - 24 hr 01/10/21 16:00 01/10/21 20:00 01/10/21 21:15 Temperature 98.9 F 97.2 F L Pulse Rate 65 67 96 Respiratory Rate 20 18 Blood Pressure 141/60 H 130/58 L Pulse Oximetry 93 91 91 01/11/21 00:00 01/11/21 04:00 01/11/21 08:00 Temperature 96.8 F L 97.4 F L 98.4 F Pulse Rate 64 97 62 Respiratory Rate 18 18 20 Blood Pressure 134/64 140/81 122/70 Pulse Oximetry 91 93 90 01/11/21 12:00 Temperature 98.9 F Pulse Rate 87 Respiratory Ra
[2021-01-11] MEDS: SODIUM CHLORIDE NASAL GEL 14.1 GM 1 APPLIC NASAL (19:51)
[2021-01-12] VITALS: BP 152/75; PULSE 64; RESP 18; TEMP 36.6; O2SAT 93
[2021-01-12 04:00] VITALS: BP 154/79; PULSE 60; RESP 18; TEMP 36.4; O2SAT 90
[2021-01-12 08:00] VITALS: BP 117/62; PULSE 120; PULSE 87; RESP 20; TEMP 36.8; O2SAT 89; O2SAT 90
[2021-01-12] MEDS: ALBUTEROL SULFATE (*SP) INHALER 2 PUFF INHALATION (09:21)
[2021-01-12] MEDS: ENOXAPARIN 40 MG/0.4 ML SYRINGE SUB-Q (09:22)
[2021-01-12] MEDS: DEXAMETHASONE SOD PHOS INJ 4 MG/ML VIAL 6 MG IV PUSH (09:22)
[2021-01-12 09:26] VITALS: PULSE 88; O2SAT 91
[2021-01-12 09:27] VITALS: PULSE 91; O2SAT 90
[2021-01-12 09:31] VITALS: PULSE 120; O2SAT 89
--- NOTE | 2021-01-12 09:39 | PCRCNOTE ---
walked pt in her room for home o2 evaluation and patient maintained her saturations. Does not qualify for home oxygen RN aware.
--- NOTE | 2021-01-12 10:36 | PM.DS ---
DS: Admitting Diagnosis Admitting Diagnosis Admitting Diagnosis: SOB DS: Discharge Diagnosis Discharge Diagnosis (1) Acute respiratory failure with hypoxia: Code(s): J96.01 - Acute respiratory failure with hypoxia Status: Acute Assessment and Plan: Patient was diagnosed with COVID-19 on arrival after having her 1st COVID vaccine about 10 days ago. After her vaccine she has had intermittent fevers, cough, weakness. Initial vitals showed She was afebrile, normal blood pressure, non tachycardic heart rate and found to be hypoxic at 88% on room air. She was placed on oxygen 2 L with improvement to 93%. Initial labs showed normal WBC with elevated 77%. Normal coag panel. Slight dehdyration with hyponatremia at 134, Cr 1.0, BUN 19. Slightly elevated 68. Chest x-ray on arrival showed patchy airspace opacities in middle and lower lung zones consistent with pneumonia (especially COVID-19 pneumonia). COVID test came back positive on 01/06/21. She was requiring up to 3 L of oxygen via nasal cannula and up to 6 L of oxygen with exertion. After q.i.d. albuterol inhaler, IV dexamethasone, and other supportive medications her symptoms improved. She had a home oxygen evaluation which showed she did not require any oxygen at rest or with exertion. She did not need oxygen at discharge. She was discharged home to continue taking albuterol inhaler, dexamethasone for few more days and follow-up with her primary care provider. I told the patient she should not drive back to [place] for a few days, to rest with her friend until she is completely recovered and ready for the drive. She understands and agrees with the plan all questions answered. (2) Pneumonia due to COVID-19 virus: Code(s): U07.1 - COVID-19; J12.82 - Pneumonia due to coronavirus disease 2018 Status: Acute Assessment and Plan: Please see above. DS: Summary Hospital Course Hospital Course: See above Status at Discharge Cognitive/behavioral status at discharge: Stable, improved. Time Spent with Patient Time attestation: Total time spent providing and/or coordinating discharge services: 38 Time spent: Greater than 30 minutes Exam Narrative: Exam Narrative: General: 55 year-old woman sitting up in the chair watching TV. Appears comfortable on room air. In no acute distress. Skin: No jaundice or cyanosis. Good skin turgor. Neck: Full range of motion. Supple. Respiratory: Decreased lung sounds throughout all lung lau. No wheezing, rales or rhonchi. No bony chest wall tenderness. Cardiovascular: The heart has a regular rate and rhythm without murmur. Lower extremities: No lower extremity edema. Distal pulses are easily palpated. No calf tenderness to palpation. Gastrointestinal: The abdomen is soft, nontender and nondistended with active bowel sounds. Psychiatric: Lucid and oriented. Memory intact. Neurologic: No focal deficits. Speech is clear. No facial drooping. DS: Data Data Completed and Pending Labs on day of discharge: Preliminary micro results at discharge 01/06/21 12:16 Blood Culture - Preliminary Blood 01/06/21 11:24 Blood Culture - Preliminary Blood Discharge Plan Discharge Attending physician on discharge: Karthikeyan Salguero Discharging Clinician: Gris Costello Anticipated Discharge Date/Time: 01/12/21 10:30 Patient Disposition: Home, Self-Care Activity: as tolerated Diet: regular Discharge Instructions: Gris Costello PA-C Hospitalist You were admitted into the hospital and found to have COVID. Your required oxygen and were treated symptomatically. At this time you're no longer requiring any oxygen and feeling much better. You will be discharged on a few more days of steroids. Continue taking albuterol inhaler as needed for gordon
== END 2021-01-12 11:40 | disposition home or self-care (01) | DRG 177 ==
LOC: ANHED 11:24 → ANH3MEDSUR 14:58
PROVIDERS: Emergency Medicine; Internal Medicine; Admitting Provider Family Medicine; Emergency Provider Emergency Medicine; Visit Provider Physician Assistant
DX: U07.1 COVID-19 (principal); J96.01 Acute respiratory failure with hypoxia; J12.82 Pneumonia due to coronavirus disease 2019
CPT/HCPCS: 36415; 71045; 80053; 82565; 82728; 83605; 83615; 84145; 84460; 85025; 85027; 85610; 86140; 87040; 93005; 94618; 94640; 96360; 99291; A9270; C9803; J0456; J0696; J1100; J1650; J7030; U0003; U0005